=== PATIENT | female | born 1980 | race Two or more races ===

== ENCOUNTER 2025-04-05 07:33 | Emergency (ER) | payer MEDICAID ==
[~2025-04-05] VITALS: Ht 165.1 cm; Wt 90.2 kg
--- NOTE | 2025-04-05 07:41 | ECG ---
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
--- NOTE | 2025-04-05 07:59 | ED.PDOC ---
HPI Comments 44-year-old female with no reported PMHx presents with a chief complaint of right-sided chest pain x onset yesterday. Patient states that she was recently diagnosed with Strep Throat and was placed on Amoxicillin x 2 days ago. Patients EKG shows NSR with a rate of 90, no ST elevations. Patient is tearful during assessment. Chief Complaint: Chest Pain Time Seen by MD: 07:45 Primary Care Provider: Juancarlos Medickeyonna Phillips Reviewed Notes: Medications, Allergies Allergies: Coded Allergies: NO KNOWN ALLERGIES (Unverified , 04/21/14) Information Source: Patient Mode of Arrival: Ambulatory Severity: Moderate Timing: Hours Duration: Since onset Prehospital treatment: None Location: Chest (R) Radiation: No Radiation Quality: Sharp Onset: At Rest Cardiac Risk Factors: None PE Risk Factors: None History of: None Past Medical History PAST MEDICAL HISTORY: Denies Surgical History: Denies all surgeries SPECIALIST ICU History: No Pertinent SPECIALIST ICU History Family History Family History: Unobtainable Social History Smoker: Non-Smoker Alcohol: Denies ETOH Use Drugs: Denies Drug Use Lives In: Home Constitutional: denies: chills, diaphoresis, fatigue, fever, malaise, sweats, weakness, others EENTM: denies: blurred vision, double vision, ear bleeding, ear discharge, ear drainage, ear pain, ear ringing, eye pain, eye redness, hearing loss, mouth pain, mouth swelling, nasal discharge, nose bleeding, nose congestion, nose pain, photophobia, tearing, throat pain, throat swelling, voice changes, others Respiratory: denies: cough, hemoptysis, orthopnea, SOB at rest, shortness of breath, SOB with excertion, stridor, wheezing, others Cardiovascular: reports: chest pain; denies: dizzy spells, diaphoresis, Dyspnea on exertion, edema, irregular heart beat, left arm pain, lightheadedness, palpitations, PND, syncope, others Gastrointestinal: denies: abdomen distended, abdominal pain, blood streaked bowels, constipated, diarrhea, dysphagia, difficulty swallowing, hematemesis, melena, nausea, poor appetite, poor fluid intake, rectal bleeding, rectal pain, vomiting, others Genitourinary: denies: abnormal vagina bleeding, burning, dyspareunia, dysuria, flank pain, frequency, hematuria, incontinence, pain, , vagina discharge, urgency, others Neurological: denies: dizziness, fainting, headache, left sided numbness, left sided weakness, numbness, paresthesia, pre-existing deficit, right sided numbness, right sided weakness, seizure, speech problems, tingling, tremors, weakness, others Musculoskeletal: denies: back pain, gout, joint pain, joint swelling, muscle pain, muscle stiffness, neck pain, others Integumetry: denies: bruises, change in color, change in hair/nails, dryness, laceration, lesions, lumps, rash, wounds, others Allergic/Immunocompromised: denies: Difficulty Healing, Frequent Infections, Hives, Itching, others Hematologic/Lymphatic: denies: anemia, blood clots, easy bleeding, easy bruising, swollen glands, others Endocrine: denies: excessive hunger, excessive sweating, excessive thirst, excessive urination, flushing, intolerance to cold, intolerance to heat, unexplained weight gain, unexplained weight loss, others Psychiatric: denies: anxiety, bipolar disorder, depression, hopeless, panic disorder, schizophrenia, sleepless, suicidal, others All Other Systems: Reviewed and Negative Physical Exam General Appearance: Moderate Distress, Normal HEENT: Normal ENT Inspection, Pharynx Normal, TMs Normal Neck: Full Range of Motion, Non-Tender, Normal, Normal Inspection Respiratory: Chest Non-Tender, Lungs Clear, No Accessory Muscle Use, No Respiratory Distress, Normal Breath Sounds Cardiovascular: No Edema, No JVD, No Murmur, No Gallop, Normal Peripheral Pulses, Regular Rate/Rhythm Breast Exam: Deferred Gastrointestinal: No Organomegaly, Non Tender, No Pulsatile Mass, Normal Bowel Sounds, Soft Genitalia: Deferred Pelvic: Deferred Rectal: Deferred Extremities: No calf tenderness, Normal capillary refill, Normal inspection, Normal range of motion, Non-tender, No pedal edema Musculoskeletal : Apperance: Normal 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 Was a procedure done?: No CP Differential Dx Differential Diagnosis: A-fib, A-Flutter, Angina, Anxiety / Panic Attack, Atrial Dysrhythmia, Electrolyte Disorder X-Ray, Labs, Meds, VS Vital Signs Date Time Temp Pulse Resp B/P (MAP) Pulse Ox O2 Delivery O2 Flow Rate FiO2 04/05/25 09:03 71 04/05/25 08:42 92 20 96 Room Air 04/05/25 08:42 97.6 92 20 131/92 (105) 96 97.6 04/05/25 07:59 90 04/05/25 07:40 90 04/05/25 07:37 98.4 89 16 131/84 95 98.4 Lab Test 04/05/25 09:19 04/05/25 07:46 Range/Units Troponin I High Sensitivity < 3 L < 3 L </=34 ng/L D-Dimer, Quantitative 0.42 0.0-0.49 mg/L FEU Current Medications Medications (Trade) Dose Ordered Sig/Omar Route Start Time Stop Time Status Last Admin Aspirin 325 mg ONCE ONCE PO 04/05/25 08:00 04/05/25 08:01 DC 04/05/25 08:37 Ketorolac Tromethamine (Toradol Injection) 60 mg ONCE ONCE IM 04/05/25 09:30 04/05/25 09:31 DC 04/05/25 09:43 Patient alert. Complaining of the right-sided chest discomfort. Vitals stable. Answering questions. EKG reviewed does not show any acute changes. Was given aspirin. Cardiac marker within normal limits. Recovering from a cold. Possible pneumonitis. Was given prescription of prednisolone amoxicillin antibiotic. Explained to the patient. Was told to follow up with her primary care physician. Was told to come back if there is any problem Time of 1ST Reevaluation: 08:15 Reevaluation 1ST: Unchanged Time of 2ND Reevaluation: 10:39 Reevaluation 2ND: Improved Patient Education/Counseling: Diagnosis, Treatment, Need For Follow Up Family Education/Counseling: No Family Present SEPSIS Sepsis Screen Date sepsis recognized/suspect: Apr 05, 2025 Time Sepsis recognized/suspect: 0737 Recent Procedure: No On Antibiotic Therapy: No Respiratory Rate >20: No Heart Rate >90: No Temp<36 C (96.8 F) or >38.3 C: No SBP <90 or MAP <65 mmHG: No New Acute Mental Status Change: No Is the patient on CPAP, BIPAP,: No Physician Orders Troponin-I Hs (04/05/25 10:36) Electrocardigram (04/05/25 10:36) Chest Portable (04/05/25 07:48) Urinalysis (04/05/25 07:48) Vital Signs Date Time Temp Pulse Resp B/P (MAP) Pulse Ox O2 Delivery O2 Flow Rate FiO2 04/05/25 09:03 71 04/05/25 08:42 92 20 96 Room Air 04/05/25 08:42 97.6 92 20 131/92 (105) 96 97.6 04/05/25 07:59 90 04/05/25 07:40 90 04/05/25 07:37 98.4 89 16 131/84 95 98.4 Medications Medications Dose Ordered Sig/Omar Route Start Time Stop Time Status Last Admin Dose Admin Aspirin 325 mg ONCE ONCE PO 04/05/25 08:00 04/05/25 08:01 DC 04/05/25 08:37 Ketorolac Tromethamine 60 mg ONCE ONCE IM 04/05/25 09:30 04/05/25 09:31 DC 04/05/25 09:43 Departure 1 Departure Time of Disposition: 08:02 Impression: Primary Impression: Pneumonitis Additional Impression: Musculoskeletal chest pain Disposition: 01 HOME / SELF CARE / HOMELESS Condition: Good e-Prescriptions Amoxicillin Trihydrate (Amoxicillin) 500 Mg Tab 1 TAB PO TID for 5 Days, #15 TAB Prov: ANETTE EMERSON MD 04/05/25 Prednisone (Prednisone) 10 Mg Tab 10 MG PO BS for 5 Days, #5 MG Prov: ANETTE EMERSON MD 04/05/25 Discharged With: Self Critical Care Note Critical Care Time?: No Stability Stability form required: No Heart Score Heart Score: Heart Score Response (Comments) Value History Slightly Suspicious 0 EKG Normal 0 Age <45 0 Risk Factors No known risk factors 0 Troponin Normal limit 0 Total 0 I personally scribed for ANETTE EMERSON MD ([email or web address]) on 04/05/25 at 07:59. Electronically submitted by Russel Gan ([email or web address]). ANETTE EMERSON MD Apr 05, 2025 07:59
--- NOTE | 2025-04-05 08:41 | DVH ---
CHEST RADIOGRAPH Indication: sob Technique: XY CHEST PORTABLE COMPARISON: None FINDINGS: The cardiac silhouette is unremarkable. The lungs demonstrate bilateral patchy airspace opacities. Th e pulmonary vasculature is prominent. There is no pleural effusion. There is no pneumothorax. IMPRESSION: Pulmonary vascular congestion and bilateral patchy airspace opacities.
--- NOTE | 2025-04-05 09:04 | ECG ---
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
[2025-04-05] MEDS: KETOROLAC TROMETH 60MG/2ML VIAL IM ONE (09:43)
[2025-04-05] MEDS ORDERED: AMOX500T3 PO (10:39)
[2025-04-05] MEDS ORDERED: PRED10TA PO (10:39)
[2025-04-05 10:48] VITALS: BP 126/78; PULSE 88; RESP 18; TEMP 97; O2SAT 98
== END 2025-04-05 10:49 | disposition home or self-care (01) ==
LOC: ER 07:36
DX: J18.9 Pneumonia, unspecified organism (principal); R07.9 Chest pain, unspecified
CPT/HCPCS: 36415; 71045; 84484; 85379; 93005; 96372; 99285; J1885